=== PATIENT | male | born 1995 | race Caucasian/White ===

== ENCOUNTER 2017-08-14 10:39 | Emergency (ER) | payer BC, OTHER ==
[~2017-08-14] VITALS: Ht 175.3 cm; Wt 72.2 kg
[2017-08-14 10:42] VITALS: TEMP 36.4; Ht 175.3 cm; Wt 72.2 kg
[2017-08-14] MEDS ORDERED: ACETAMINOPHEN 500 MG TAB PO STA (10:59)
[2017-08-14] MEDS ORDERED: IBUPROFEN 600 MG TAB PO STA (10:59)
--- NOTE | 2017-08-14 11:13 | EMERGENCY ROOM VISIT NOTE ---
History Report prepared by Tejinder: Liborio Myers Under the Supervision of: Dr. Patrick Higgins M.D. First contact with patient: 10:52 Chief Complaint: TESTICULAR PAIN Stated Complaint: GROIN/TESTICULAR PAIN History of Present Illness The patient is a 21 year old male who presents to the Emergency Room with complaints of a constant right testicular pain that began three days ago. He rates his pain a 6/10 in severity. He denies any known past medical history. Prior to when his pain began, the patient states that he did an extensive leg workout and then played soccer for several hours. After he was finished, his pain began. His pain radiates from his right inner groin down into his right testicle. He denies any pain to his left testicle. Over these past couple of days, his pain has progressively worsened. His pain is exacerbated with movement and positioning. This has never happened to him before. Earlier today, he presented to [facility] who then referred him here for a possible inguinal hernia or testicular torsion. He denies any falls, trauma, injury, or abnormal urinary symptoms. Source of History: patient Onset: three days ago Position: other (Right testicle) Symptom Intensity: 6/10 Quality: ache Timing: constant Modifying Factors (Worsening): movement, other (Positioning) Associated Symptoms: No urinary symptoms Note: He denies any falls, trauma, or injury. He is experiencing right groin/thigh pain. Review of Systems See HPI for pertinent positives & negatives. A total of 10 systems reviewed and were otherwise negative. Past Medical & Surgical Medical Problems: (1) No Known Active Medical Problems Family History Patient reports no known family medical history. Social History Smoking Status: Never Smoker Smokeless Tobacco Use: No Alcohol Use: none Drug Use: none Marital Status: single Housing Status: lives alone Occupation Status: student Current/Historical Medications Scheduled Doxycycline Hyclate (Vibramycin), 100 MG PO BID Allergies Coded Allergies: No Known Allergies (Unverified , 08/14/17) Physical Exam Vital Signs Date Time Temp Pulse Resp B/P (MAP) Pulse Ox O2 Delivery O2 Flow Rate FiO2 08/14/17 13:35 65 18 131/76 99 08/14/17 12:35 68 18 145/84 99 Room Air 08/14/17 10:42 36.4 76 20 135/79 100 Room Air Physical Exam GENERAL: Patient is in no acute distress. HEENT: No acute trauma, normocephalic atraumatic, mucous membranes moist, no nasal congestion, no scleral icterus. NECK: No stridor, no adenopathy, no meningismus, trachea is midline. LUNGS: Clear to auscultation bilaterally, no wheeze, no rhonchi, breath sounds equal. HEART: Without murmurs gallops or rubs, regular rate and rhythm. ABDOMEN: Soft, nontender, bowel sounds positive, no hernias, no peritonitis. GROIN: No cellulitis. No hernia with straining. Circumcised. Right testicle and epididymis are tender with palpation. No testicular enlargement. EXTREMITIES: Painful to palpate the right groin musculature. There is a strong femoral pulse. Pain with external hip rotation. NEUROLOGIC: Oriented x 3, no acute motor or sensory deficits, no focal weakness. SKIN: No rash, no jaundice, no diaphoresis. Medical Decision & Procedures ER Provider Diagnostic Interpretation: Radiology results as stated below per my review and radiologist interpretation: RIGHT INGUINAL ULTRASOUND HISTORY: Right groin/testicular pain. COMPARISON: None. FINDINGS: No right inguinal hernia was identified by sonography. IMPRESSION: No right inguinal hernia identified. Electronically signed by: Conor Robertson M.D. 08/14/2017 12:34 PM Dictated Date/Time: 08/14/2017 12:33 PM (TESTICULAR) SCROTUM-CONT CLINICAL HISTORY: 21 years-old Male presenting with POSS TORSION. TECHNIQUE: Real-time grayscale and color and spectral Doppler ultrasound imaging of the scrotum was performed. COMPARISON: None. FINDINGS: Right testis: Normal echogenicity and echotexture. Testis measures 4.5 x 2.7 x 2.0 cm. Normal color Doppler flow and arterial and venous waveforms in the testicular parenchyma. Epididymal head contains diminutive cysts. Trace hydrocele. No varicocele. Left testis: Normal echogenicity and echotexture. Testis measures 4.1 x 2.4 x 2.4 cm. Normal color Doppler flow and arterial and venous waveforms in the testicular parenchyma. Epididymal head contains diminutive cysts. Small hydrocele. No varicocele. Symmetric perfusion of the testes. IMPRESSION: 1. No evidence of testicular torsion. 2. Small left and trace right hydroceles. Electronically signed by: Darrel Leiva M.D. 08/14/2017 12:39 PM Dictated Date/Time: 08/14/2017 12:37 PM Laboratory Results Test 08/14/17 11:15 Urine Color YELLOW Urine Appearance CLEAR (CLEAR) Urine pH 5.0 (4.5-7.5) Urine Specific [place] 1.022 (1.000-1.030) Urine Protein NEG (NEG) Urine Glucose (UA) NEG (NEG) Urine Ketones NEG (NEG) Urine Occult Blood NEG (NEG) Urine Nitrite NEG (NEG) Urine Bilirubin NEG (NEG) Urine Urobilinogen NEG (NEG) Urine Leukocyte Esterase NEG (NEG) Laboratory results reviewed by me. Medications Administered Medications (Trade) Dose Ordered Sig/Patricia Route Start Time Stop Time Status Last Admin Dose Admin Ibuprofen (Motrin Tab) 600 mg NOW STAT PO 08/14/17 10:59 08/14/17 11:02 DC 08/14/17 11:04 600 MG Acetaminophen (Tylenol Tab) 1,000 mg NOW STAT PO 08/14/17 10:59 08/14/17 11:02 DC 08/14/17 11:05 1,000 MG Ceftriaxone Sodium (Rocephin Im) 250 mg NOW ONCE IM 08/14/17 13:30 08/14/17 13:31 DC 08/14/17 13:32 250 MG Azithromycin (Zithromax Tab) 1,000 mg NOW ONCE PO 08/14/17 13:30 08/14/17 13:31 DC 08/14/17 13:32 1,000 MG ED Course 1052: The patient was evaluated in room B2. A complete history and physical exam was performed. 1059: Ordered Tylenol Tab 1000 mg PO, Motrin Tab 600 mg PO 1330: Ordered Zithromax Tab 1000 mg PO, Rocephin Im 250 mg IM 1340: Reevaluated the patient. Discussed results and discharge instructions: He verbalized understanding and agreement. The patient is ready for discharge. Medical Decision Differential diagnosis includes but is not limited to epididymitis, orchitis, hernia, musculoskeletal pain, infection, and testicular torsion. There is no evidence for urinary infection or hematuria. Abdominal ultrasound does not show evidence for hernia. Testicular ultrasound does not show evidence for testicular torsion, no mass was seen. The patient presents with right groin pain and right testicle pain. I think the groin pain may actually be musculoskeletal from playing soccer and lifting. The right testicle pain though I suspect is early epididymitis. The patient was given oral Motrin and oral Tylenol. He received IM ceftriaxone and oral Zithromax. He will be discharged on doxycycline twice a day for 2 weeks. The patient was encouraged to return here for any worsening symptoms or if not improving. Medication Reconcilliation Current Medication List: was personally reviewed by me Blood Pressure Screening Patient's blood pressure: Elevated blood pressure Blood pressure disposition: Elevated BP felt to be situational Impression Primary Impression: Right groin pain Additional Impression: Epididymitis Scribe Attestation The scribe's documentation has been prepared under my direction and personally reviewed by me in its entirety. I confirm that the note above accurately reflects all work, treatment, procedures, and medical decision making performed by me. Departure Information Dispostion Home / Self-Care Prescriptions Doxycycline Hyclate (VIBRAMYCIN) 100 Mg Cap 100 MG PO BID for 14 Days, #28 CAP Prov: Patrick Higgins M.D. 08/14/17 Referrals No Doctor, Assigned (PCP) Forms HOME CARE DOCUMENTATION FORM, IMPORTANT VISIT INFORMATION, WORK / SCHOOL INSTRUCTIONS Patient Instructions My [facility] Additional Instructions rest ice for 30 minutes at a time for comfort tylenol or motrin for pain rest no exercise until 100 percent better start doxycycline 2x per day for 14 days wear supportive jockey style underwear return if worsening as we discussed or if not improving Problem Qualifiers
--- NOTE | 2017-08-14 12:35 | DIAGNOSTIC IMAGING REPORT ---
RIGHT INGUINAL ULTRASOUND HISTORY: Right groin/testicular pain. COMPARISON: None. FINDINGS: No right inguinal hernia was identified by sonography. IMPRESSION: No right inguinal hernia identified. Electronically signed by: Conor Robertson M.D. 08/14/2017 12:34 PM Dictated Date/Time: 08/14/2017 12:33 PM
--- NOTE | 2017-08-14 12:40 | DIAGNOSTIC IMAGING REPORT ---
(TESTICULAR) SCROTUM-CONT CLINICAL HISTORY: 21 years-old Male presenting with POSS TORSION. TECHNIQUE: Real-time grayscale and color and spectral Doppler ultrasound imaging of the scrotum was performed. COMPARISON: None. FINDINGS: Right testis: Normal echogenicity and echotexture. Testis measures 4.5 x 2.7 x 2.0 cm. Normal color Doppler flow and arterial and venous waveforms in the testicular parenchyma. Epididymal head contains diminutive cysts. Trace hydrocele. No varicocele. Left testis: Normal echogenicity and echotexture. Testis measures 4.1 x 2.4 x 2.4 cm. Normal color Doppler flow and arterial and venous waveforms in the testicular parenchyma. Epididymal head contains diminutive cysts. Small hydrocele. No varicocele. Symmetric perfusion of the testes. IMPRESSION: 1. No evidence of testicular torsion. 2. Small left and trace right hydroceles. Electronically signed by: Darrel Leiva M.D. 08/14/2017 12:39 PM Dictated Date/Time: 08/14/2017 12:37 PM
[2017-08-14] MEDS ORDERED: DOXY100C PO (13:20)
[2017-08-14] MEDS ORDERED: AZITHROMYCIN 250 MG TAB PO ONE (13:30)
[2017-08-14] MEDS ORDERED: CEFTRIAXONE SOD 350MG/ML 1 GM VIAL IM ONE (13:30)
[2017-08-14 13:35] VITALS: BP 131/76; PULSE 65; O2SAT 99
== END 2017-08-14 13:37 | disposition home or self-care (01) ==
LOC: C.EDB 10:41
DX: R10.31 Right lower quadrant pain (principal); N50.811 Right testicular pain; Y93.66 Activity, soccer; R03.0 Elevated blood-pressure reading, without diagnosis of hypertension